=== PATIENT | female | born 1970 | race African-American/Black ===

== ENCOUNTER 2016-09-24 19:02 | Emergency (ER) | payer MEDICAID, OTHER ==
[~2016-09-24 19:02] MED LIST: BENA25CA2 PO; CILO0.3S EACH EYE
[2016-09-24 19:06] VITALS: BP 161/86; PULSE 86; RESP 16; TEMP 98.6; O2SAT 99
[2016-09-24 21:38] VITALS: BP 147/68; PULSE 74; RESP 18; O2SAT 99
[2016-09-24] MEDS ORDERED: BACT800T5 PO (21:51)
--- NOTE | 2016-09-24 21:51 | PD ---
HPI Chief Complaint: Facial Pain or Swelling Time Seen by Provider: 21:39 Travel History International Travel<30 days: No Contact w/Intl Traveler<30days: No Traveled to known affect area: No History of Present Illness HPI got a "spider bite" to left ear, about 4 days ago and then today started feeling throbbing pain to her molar area, denies fever/n/v/d/cp/abdpain/ram PFSH Past Medical History Heart Rhythm Problems: No Cardiac Catheterization: No Cardiovascular Problems: No High Cholesterol: No Congestive Heart Failure: No Diabetes: No Diminished Hearing: No Genitourinary: Yes (PID (REMOTE)-) Thyroid Disease: Yes (Hypo) ?: Not : 5 Para: 3 : 2 Dilation and Curettage (D&C): Yes Past Surgical History Coronary Artery Bypass Graft: No Gynecologic Surgery: Yes (D & C; REMOTE) Joint Replacement: No Social History Alcohol Use: Yes (OCCASSIONAL) Tobacco Use: No Substance Use: No Allergies-Medications (Allergen,Severity, Reaction): Coded Allergies: Betadine (Verified Allergy, Intermediate, HIVES AND INFECTIONS, 09/24/16) Augmentin (Verified Adverse Reaction, Unknown, Hallucinations, 09/24/16) DELIRIOUS Reported Meds & Prescriptions Reported Meds & Active Scripts Active Active Prescriptions or Reported Medications Unobtainable Review of Systems Except as stated in HPI: all other systems reviewed are Neg Skin: Positive Other (redness and swelling to her ear lobe area) Physical Exam Narrative GENERAL: SKIN: Warm and dry.....left antihelix shows mild edema/erythema/no fluctuance/ no drainage HEAD: Atraumatic. Normocephalic. EYES: Pupils equal and round. No scleral icterus. No injection or drainage. ENT: No nasal bleeding or discharge. Mucous membranes pink and moist.....left mandibular molar 3 has gingival edema, no abscess but also partially broken enamel/ without pulp or dentin exposure NECK: Trachea midline. No JVD. CARDIOVASCULAR: Regular rate and rhythm. RESPIRATORY: No accessory muscle use. Clear to auscultation. Breath sounds equal bilaterally. GASTROINTESTINAL: Abdomen soft, non-tender, nondistended. Hepatic and splenic margins not palpable. MUSCULOSKELETAL: Extremities without clubbing, cyanosis, or edema. No obvious deformities. NEUROLOGICAL: Awake and alert. No obvious cranial nerve deficits. Motor grossly within normal limits. Five out of 5 muscle strength in the arms and legs. Normal speech. PSYCHIATRIC: Appropriate mood and affect; insight and judgment normal. Data Data Last Documented VS Vital Signs Date Time Temp Pulse Resp B/P Pulse Ox O2 Delivery O2 Flow Rate FiO2 09/24/16 21:38 74 18 147/68 99 Room Air 09/24/16 19:06 98.6 [facility] Medical Decision Making Medical Screen Exam Complete: Yes Emergency Medical Condition: Yes Medical Record Reviewed: Yes Differential Diagnosis cellulitis and dental/gingival disease...no facial abscess Narrative Course patient is otherwise stable, will d/c on abx for ear cellulitis and gingivitis Diagnosis Primary Impression: Cellulitis of antihelix of left ear Additional Impression: early dental abscess Patient Instructions: Cellulitis (ED), General Instructions Med/Other Pt SpecificInfo: Prescription(s) given Scripts Sulfamethoxazole-Trimethoprim (Bactrim DS)800-160 Mg Tab1 Tab PO BID #[id number] TAB Prov:Jessee Michelle MD 09/24/16 Disposition: 01 DISCHARGE HOME Condition: Stable Jessee Michelle MD Sep 24, 2016 21:51
[2016-09-24] MEDS ORDERED: SULFAMETHOXAZOLE-TRIMETHOPRIM DS 800-160 MG TAB PO ONE (22:00)
== END 2016-09-24 22:18 | disposition home or self-care (01) ==
LOC: NEPD 19:02
DX: H60.12 Cellulitis of left external ear (principal); K04.7 Periapical abscess without sinus
CPT/HCPCS: 99283